=== PATIENT | male | born 1975 | race Caucasian/White ===

== ENCOUNTER → 2017-10-11 | Outpatient (CLI) | payer OTHER | END | disposition home or self-care (01) | LOC: CVU 14:03 | PROVIDERS: ATTEND Family Medicine | DX: I51.7 Cardiomegaly (principal); I10 Essential (primary) hypertension | CPT/HCPCS: C8929 ==

== ENCOUNTER → 2017-10-13 | Outpatient (CLI) | payer OTHER ==
[~2017-10-13] MED LIST: GADOBUTROL 10 MMOL/10 ML PFS ONE; REGADENOSON 0.4 MG/5 ML SYRINGE ONE
== END | disposition home or self-care (01) ==
LOC: CFH 07:50
PROVIDERS: ATTEND Family Medicine
DX: R55 Syncope and collapse (principal)
CPT/HCPCS: 70553; A9585; J2785

== ENCOUNTER → 2017-11-02 | Outpatient (CLI) | payer OTHER | END | disposition home or self-care (01) | LOC: EDSTATUS 11:00 → CFH 15:45 | PROVIDERS: ATTEND Family Medicine | DX: R55 Syncope and collapse (principal) | CPT/HCPCS: 93880 ==

== ENCOUNTER 2017-12-07 08:35 | Day surgery (SDC) | payer OTHER ==
[~2017-12-07] VITALS: Ht 198.1 cm; Wt 131.8 kg
[2017-12-07 09:03] VITALS: BP 133/67
[2017-12-07] MEDS ORDERED: CITA20TA6 PO (09:23)
[2017-12-07] MEDS ORDERED: VITA1TAB19 PO (09:23)
[2017-12-07] MEDS ORDERED: UBID100C41 PO (09:23)
[2017-12-07] MEDS ORDERED: ACET250T2 PO (09:23)
[2017-12-07] MEDS ORDERED: CALC-361 PO (09:23)
[2017-12-07] MEDS ORDERED: VALS1TAB26 PO (09:23)
== END 2017-12-07 11:06 ==
LOC: CACL 08:35
PROVIDERS: ATTEND Internal Medicine Cardiovascular Disease
DX: R55 Syncope and collapse (principal); R42 Dizziness and giddiness; I10 Essential (primary) hypertension; Z72.89 Other problems related to lifestyle; Z88.1 Allergy status to other antibiotic agents; Z88.8 Allergy status to other drugs, medicaments and biological substances
CPT/HCPCS: 93660

== ENCOUNTER 2017-12-21 12:34 | Day surgery (SDC) | payer OTHER ==
[~2017-12-21] VITALS: Ht 200.7 cm; Wt 134.0 kg
[~2017-12-21 12:34] MED LIST changes: +ACET250T2 PO; +CALC-361 PO; +CITA20TA6 PO; -GADOBUTROL 10 MMOL/10 ML PFS ONE; -REGADENOSON 0.4 MG/5 ML SYRINGE ONE; +UBID100C41 PO; +VALS1TAB26 PO; +VITA1TAB19 PO
[2017-12-21] MEDS ORDERED: EPINEPHRINE SYRINGE 0.1 MG/ML, 10ML ONE (12:49)
[2017-12-21] MEDS ORDERED: LIDOCAINE 2% 100MG/5ML SYRINGE ONE (12:49)
[2017-12-21] MEDS ORDERED: LIDOCAINE-MPF 2% ,5ML ONE (12:50)
[2017-12-21 13:08] VITALS: BP 142/83
== END 2017-12-21 14:31 ==
LOC: CACL 12:34
PROVIDERS: ATTEND Internal Medicine Cardiovascular Disease
DX: R55 Syncope and collapse (principal); I10 Essential (primary) hypertension; Z72.89 Other problems related to lifestyle; Z88.1 Allergy status to other antibiotic agents; Z88.8 Allergy status to other drugs, medicaments and biological substances
CPT/HCPCS: 33282; C1764; J3490